=== PATIENT | male | born 1990 | race Caucasian/White ===

== ENCOUNTER 2021-02-08 01:48 | Emergency (ER) | payer MEDICAID ==
[~2021-02-08] VITALS: Ht 167.6 cm; Wt 73.0 kg
[2021-02-08 02:55] LABS: BASOPHILS % 0.3 % (0.0-2.0); EOSINOPHILS % 1.5 % (0.0-5.0); HEMOGLOBIN. 14.3 g/dL (14.0-18.0); LYMPHOCYTES % 13.3 % (20.0-50.0); MEAN CORPUSCULAR HEMOGLOBIN 32.3 pg (28.0-32.0); MONOCYTES % 8.3 % (2.0-8.0); NEUTROPHILS % 76.6 % (40.0-76.0); PLATELET 260 x1000/uL (130-400); RED BLOOD CELL COUNT 4.42 mill/uL (4.7-6.1); RED CELL DISTRIBUTION WIDTH 14.3 % (11.6-14.6)
[2021-02-08 02:58] LABS: CHLORIDE 109 mEq/L (98-107)
[2021-02-08 03:02] LABS: ETHANOL BLOOD < 10 mg/dL
[2021-02-08 03:13] LABS: CLARITY URINE CLEAR (CLEAR); COLOR URINE YELLOW (YELLOW); KETONES URINE TRACE (NEGATIVE); LEUKOCYTE ESTERASE URINE NEGATIVE (NEGATIVE); NITRITE URINE NEGATIVE (NEGATIVE); OCCULT BLOOD URINE NEGATIVE (NEGATIVE); PH URINE 6.5 (4.5-8.0); PROTEIN URINE TRACE (NEGATIVE); SPECIFIC GRAVITY URINE 1.034 (1.005-1.030)
[2021-02-08 03:23] LABS: *AMPHETAMINES SCREEN URINE NEGATIVE (NEGATIVE); *BENZODIAZEPINES SCREEN URINE NEGATIVE (NEGATIVE); *COCAINE SCREEN URINE NEGATIVE (NEGATIVE)
[2021-02-08 03:24] LABS: *BARBITURATES SCREEN URINE NEGATIVE (NEGATIVE); CANNABINOID URINE SCREEN PRESUMTIVE POSITIVE (NEGATIVE); METHADONE URINE SCREEN NEGATIVE (NEGATIVE); OPIATES URINE SCREEN NEGATIVE (NEGATIVE); PHENCYCLIDINE URINE SCREEN NEGATIVE (NEGATIVE)
[2021-02-08] MEDS ORDERED: OLANZAPINE 10 MG/VIAL IM ONE (05:00)
[2021-02-08] MEDS ORDERED: OLAN10TA6 MT (14:31)
[2021-02-08 15:36] VITALS: BP 122/91
== END 2021-02-08 15:37 | disposition home or self-care (01) ==
LOC: ER 02:24
DX: F30.9 Manic episode, unspecified (principal); F22 Delusional disorders; Z76.5 Malingerer [conscious simulation]
CPT/HCPCS: 36415; 80053; 80305; 80320; 81003; 82962; 85025; 96372; 99285; J3490; G0480